=== PATIENT | female | born 1980 | race Caucasian/White ===

== ENCOUNTER → 2021-12-30 01:44 | Outpatient (CLI) | payer BC, SELFPAY ==
--- NOTE | 2021-12-30 08:05 | DI.MAMMO_ITS ---
Exam(s) MAMMO SCREENING EXAM: MAMMO SCREENING CLINICAL HISTORY: SCREENING, Z12.31; FAMILY H/O BREAST CA, Z84.89; DENSE BREAST TISSUE, R92.2 TECHNIQUE: Mammograms were interpreted according to the usual protocol including computer analysis w [employer] CAD system, tomosynthesis and C-view imaging. COMPARISON: None. Baseline examination. FINDINGS: The breasts are composed of heterogeneously dense fibroglandular densities, Breast Density category C . No suspicious masses or suspicious microcalcifications are seen. No skin thickening or abnormal axillary lymph nodes are seen. IMPRESSION: BI-RADS Category 1, Negative mammogram. Yearly screening mammography is recommended. Breast Density Category C, heterogeneously Dense. The mammogram demonstrates the patient's breast tissue is dense. Dense breast tissue is very common a nd is not abnormal but dense breast tissue can make it harder to find cancer on a mammogram. Also, de nse breast tissue may increase breast cancer risk. This information about the result of the mammogram report was provided to the patient to raise their awareness. Use this report when you speak with the patient about their risks for breast cancer, which includes their family history. At that time, you may recommend additional screening tests (Ultrasound or MRI) as they might be useful based on their r isk. A negative radiographic report should not delay biopsy if a dominant or clinically suspicious mass is present. Up to ten percent of cancers are not identified on mammography. A negative report may reinforce clinical impression. Adenosis and dense breasts may obscure an underlying neoplasm. False positive reports average 6 to 10%.
== END ==
PROVIDERS: PCP General Practice; Visit Provider Obstetrics & Gynecology
DX: Z12.31 Encounter for screening mammogram for malignant neoplasm of breast (principal); R92.8 Other abnormal and inconclusive findings on diagnostic imaging of breast
CPT/HCPCS: 77063; 77067

== ENCOUNTER 2022-08-05 18:53 | Emergency (ER) | payer BC, SELFPAY ==
[2022-08-05 18:59] VITALS: BP 138/91; PULSE 82; RESP 19; TEMP 36.8; O2SAT 98
--- NOTE | 2022-08-05 19:15 | DI.RAD_ITS ---
Exam(s) XR TIB/FIB LT XR ANKLE LT COMPLETE CT LOWER EXTREMITY LT WO EXAM: XR ANKLE LT COMPLETE CLINICAL HISTORY: fall TECHNIQUE: 2D digital imaging was performed. Three views. COMPARISON: CR,XR XR TIB/FIB LT from 08/05/[address] LOWER EXTREMITY LT WO from 08/05/2022 FINDINGS: There is displaced, oblique fracture through the lateral malleolus extending to the level of the ankl e mortise. The main fracture fragment is displaced posteriorly more than a full shaft width. There are small adjacent comminuted fragments. Tiny avulsion fragments are noted from the medial malleolus . There is also a small fragment seen posteriorly, likely arising from the posterior aspect of the distal tibial at the at the articular surface. Also question small fracture at anterior aspect of di stal tibia. Talar dome appears intact. There is dislocation laterally and posterior of the talus wi th respect to the distal tibia. No additional fractures are seen more proximally in the tibia and fi bula. The knee appears normally aligned. No additional fractures are seen in the ankle. There is s oft tissue swelling around the ankle but no intramuscular hematoma or other fluid collection visible. IMPRESSION: Comminuted, markedly displaced fracture of the lateral malleolus with associated tibiotalar dislocati on. Additional fracture fragments from the distal tibia. DATA REPOSITORY: RADIATION DOSE DELIVERED:
--- NOTE | 2022-08-05 20:23 | DI.VRAD_ITS ---
PROCEDURE INFORMATION: Exam: XR Left Ankle Exam date and time: 08/05/2022 7:54 PM Age: 42 years old Clinical indication: Injury or trauma; Fall; Blunt trauma; Ankle; Left; Injury date: 08/05/22 TECHNIQUE: Imaging protocol: Radiologic exam of the left ankle. Views: 3 or more views. COMPARISON: No relevant prior studies available. FINDINGS: Bones/joints: There is a comminuted fracture of the lateral malleolus/distal fibula with approximately 1/2 bone with displacement posteriorly of the distal fracture fragment. There is dislocation at the level of the ankle mortise with displacement of the left tibia at 1/2 bone with laterally and widening of the tibiotalar space consistent with severe tendinous and/or ligamentous injuries. The tarsal bones appear intact. Soft tissues: There is extensive soft tissue swelling and deformity. IMPRESSION: 1. There is a comminuted fracture of the lateral malleolus/distal fibula with approximately 1/2 bone width displacement posteriorly of the distal fracture fragment. 2. There is dislocation at the level of the ankle mortise with displacement of the left tibia at 1/2 bone width laterally and widening of the tibiotalar space consistent with severe tendinous and/or ligamentous injuries. Dictated and Authenticated by: Jas Torres MD. Ordering:RENETTA Allen MD
--- NOTE | 2022-08-05 20:25 | DI.VRAD_ITS ---
PROCEDURE INFORMATION: Exam: XR Left Tibia and Fibula Exam date and time: 08/05/2022 7:56 PM Age: 42 years old Clinical indication: Injury or trauma; Fall; Blunt trauma; Lower leg; Left; Injury date: 08/05/22 TECHNIQUE: Imaging protocol: Radiologic exam of the left tibia and fibula. Views: 2 views. COMPARISON: CR XR ANKLE LT COMPLETE 08/05/2022 7:54 PM FINDINGS: Bones/joints: Fracture at the left ankle is previously described involving the fibula tibia and talus. Bone mineralization is age-appropriate. The remaining tibia and fibula appear intact. The knee joint is adequately preserved; no significant degenerative narrowing and no bony erosion seen. There is disruption of the left ankle mortise as previously described. Soft tissues: No radiopaque foreign body present. There is soft tissue swelling present. IMPRESSION: 1. Fracture at the left ankle is previously described involving the fibula tibia and talus. 2. The remaining tibia and fibula appear intact. 3. There is disruption of the left ankle mortise is preserved sellae described. Dictated and Authenticated by: Jas Torres MD. Ordering:RENETTA Allen MD
[2022-08-05] MEDS: MORPHine 4 MG/ML SYR 2 MG IVP (20:27)
[2022-08-05] MEDS: Ondansetron 4 MG/2 ML VIAL IVP (20:28)
--- NOTE | 2022-08-05 20:45 | DI.VRAD_ITS ---
PROCEDURE INFORMATION: Exam: CT Left Lower Extremity Without Contrast; Lower Leg Exam date and time: 08/05/2022 8:15 PM Age: 42 years old Clinical indication: Other: Ankle fracture TECHNIQUE: Imaging protocol: CT of the left lower extremity without contrast was performed. Exam focused on the lower leg. Radiation optimization: All CT scans at this facility use at least one of these dose optimization techniques: automated exposure control; mA and/or kV adjustment per patient size (includes targeted exams where dose is matched to clinical indication); or iterative reconstruction. COMPARISON: CR XR TIB/FIB LT 08/05/2022 7:56 PM FINDINGS: Bones/joints: A small joint effusion present within the knee. Comminuted fracture of the distal fibula the distal fracture fragment is displaced approximately 1 full bone with laterally. Probable avulsion fracture of the medial malleolus. Disruption of the medial malleolus and the ankle mortise with displacement of the tibia approximately 10 mm medially and 2 cm anteriorly. Probable avulsion arising from the dorsal aspect of the tibia and also the anterior aspect of the tibia. Well corticated sesamoid bones present at the level of the medial tarsal region. Soft tissues: Extensive soft tissue swelling present within the foot and ankle. IMPRESSION: 1. Probable avulsion fracture of the medial malleolus. Disruption of the medial malleolus and the ankle mortise with displacement of the tibia approximately 10 mm medially and 2 cm anteriorly. 2. Probable avulsion arising from the dorsal aspect of the tibia and also the anterior aspect of the tibia. 3. Comminuted fracture of the distal fibula the distal fracture fragment is displaced approximately 1 full bone with laterally. Dictated and Authenticated by: Jas Torres MD. Ordering:RENETTA Allen MD
--- NOTE | 2022-08-05 21:35 | NUR.NOTE ---
Nursing Note: Obtained written consent for closed reduction of the left ankle to be performed by Alejandro Guzman NP and Dr. Bragg. Signed at 1539
[2022-08-05] MEDS: HYDROmorphone 2 MG/ML SYR 0.5 MG IVP (21:37)
--- NOTE | 2022-08-05 22:01 | NUR.NOTE ---
Nursing Note: Written consent for conscious sedation signed by Dr. Bragg and patient.
--- NOTE | 2022-08-05 22:08 | NUR.NOTE ---
Nursing Note:[id number] Bragg, Lawrence, FINGER BUFF SEWER, RT, and staff forester at bedside. 2206: Propofol 50mg IV given by Dr. Bragg 2207: Propofol 20mg IV given by Dr. Bragg 2208: Propofol 30mg IV given by Dr. Bragg 2218: Splinting completed, pt awake and talking.
--- NOTE | 2022-08-05 22:15 | DI.RAD_ITS ---
Exam(s) XR ANKLE LT COMPLETE EXAM: XR ANKLE LT COMPLETE CLINICAL HISTORY: post reduction TECHNIQUE: 2D digital imaging was performed. Three views. COMPARISON: CR,XR XR TIB/FIB LT from 08/05/2022 CR,XR XR ANKLE LT COMPLETE from 08/05/2022 FINDINGS: A cast has been placed. There is improved alignment of the distal fibular fracture and previously no yamileth tibiotalar dislocation. DATA REPOSITORY: RADIATION DOSE DELIVERED:
--- NOTE | 2022-08-05 22:21 | RESPIRATORY ---
Respiratory Therapy on emergency stand by for conscious sedation.
[2022-08-05] MEDS: Propofol 200 MG/20 ML VIAL (22:28)
--- NOTE | 2022-08-05 22:46 | ED.GENADUL_ITS ---
Discharge Plan Disposition Patient Disposition: Home Discharge Details Clinical Impression: Ankle fracture, left Primary Care Provider: Blanco Santos ED Provider: Alejandro Guzman Home Meds and New Rx's Prescriptions: No Action dimenhydrinate [Dramamine] 50 mg tablet 50 mg PO Q6H PRN albuterol sulfate [ProAir HFA] 90 mcg/actuation HFA aerosol inhaler 2 puff inhalation Q6H PRN fluticasone propionate 50 mcg/actuation spray,suspension 1 spray intranasal DAILY Rx Instructions: administer into each nostril ondansetron 4 mg Tablet,Disintegrating 4 mg PO DIRECTED acetaminophen 500 mg tablet 1,000 mg PO TID Qty: 90 3RF ibuprofen 600 mg tablet 600 mg PO TID PRNQty: 90 3RF aspirin 81 mg tablet,delayed release (DR/EC) 81 mg PO BID Qty: 60 0RF hydromorphone 2 mg tablet 2 mg PO Q4H PRN (Reason: pain) Qty: 12 0RF Discharge Instructions Additional Instructions: Has been given a limited supply of narcotics and please use as discussed for severe pain only. You may continue to use [id number] pain medication on top of the narcotic. If you have any severe worsening of your symptoms feel free to return the emergency department for emergent reevaluation The orthopedic office will contact you tomorrow for further discussion of definitive care of your ankle fracture. Please do not eat or drink anything after midnight but you may take your medication with small sips of water. Stand Alone Forms: Work Release Referrals: Liu Suh MD [ [facility] STAFF PHYSICIAN] - Discharge Data Discharge Date/Time-TO BE ENTERED AT DEPARTURE: 08/05/22 23:24 Medical Decision Making <Alejandro Guzman NP - Last Filed: 08/08/22 09:01> Patient presenting to the emergency department for chief complaint of left ankle injury. She states her dog ran into her causing her to fall injuring her left ankle. She does state some numbness and tingling along with severe pain and discomfort with no movement of ankle due to deformity. Patient denies any other injury or trauma. Physical exam shows obvious significant deformity of the left ankle with high suspicion of fracture and/or dislocation. Pulses are intact and patient does have sensation and movement of toes but again perceived numbness is present. No range of motion of the injury due to pain and deformity. We will perform radiological imaging and give morphine pending x-ray results. Reviewed x-ray results that show a significant dislocation of the tibia and fracture of the distal fibula. Due to nature of injury CT imaging was obtained as I do suspect patient will need surgical repair. We will consent patient for procedural sedation and closed reduction of the ankle. Patient has no significant past medical history is and has not eaten for appropriate amount of time. Please see procedure note and Dr. Bragg's sedation note. Patient had appropriate reduction of fracture and dislocation splinting was applied. Of note patient had full resolution of all numbness and tingling and intact pulses postreduction. Did contact Dr. Suh who arranged for patient to have surgical intervention tomorrow. Patient given Zofran and limited supply of narcotic to assist with pain overnight pending returning for operative repair. After discussion of diagnosis and plan of care patient has no further needs, questions, or concerns and states clear understanding to return to the emergency department for any worsening symptoms. This documentation was generated using [employer] dictation system, please disregard any oddities of phrase or misspellings. Imaging Data Radiologic Study: Attestation: I personally reviewed and interpreted this imaging study as follows: Imaging: X-Ray Radiologist's impression: Exam(s) PROCEDURE INFORMATION: Exam: XR Left Ankle Exam date and time: 08/05/2022 7:54 PM Age: 42 years old Clinical indication: Injury or trauma; Fall; Blunt trauma; Ankle; Left; Injury date: 08/05/22 TECHNIQUE: Imaging protocol: Radiologic exam of the left ankle. Views: 3 or more views. COMPARISON: No relevant prior studies available. FINDINGS: Bones/joints: There is a comminuted fracture of the lateral malleolus/distal fibula with approximately 1/2 bone with displacement posteriorly of the distal fracture fragment. There is dislocation at the level of the ankle mortise with displacement of the left tibia at 1/2 bone with laterally and widening of the tibiotalar space consistent with severe tendinous and/or ligamentous injuries. The tarsal bones appear intact. Soft tissues: There is extensive soft tissue swelling and deformity. IMPRESSION: 1. There is a comminuted fracture of the lateral malleolus/distal fibula with approximately 1/2 bone width displacement posteriorly of the distal fracture fragment. 2. There is dislocation at the level of the ankle mortise with displacement of the left tibia at 1/2 bone width laterally and widening of the tibiotalar space consistent with severe tendinous and/or ligamentous injuries. Radiologic Study #2: Attestation: I personally reviewed and interpreted this imaging study as follows: Imaging: X-Ray Radiologist's impression: Exam(s) PROCEDURE INFORMATION: Exam: XR Left Tibia and Fibula Exam date and time: 08/05/2022 7:56 PM Age: 42 years old Clinical indication: Injury or trauma; Fall; Blunt trauma; Lower leg; Left; Injury date: 08/05/22 TECHNIQUE: Imaging protocol: Radiologic exam of the left tibia and fibula. Views: 2 views. COMPARISON: CR XR ANKLE LT COMPLETE 08/05/2022 7:54 PM FINDINGS: Bones/joints: Fracture at the left ankle is previously described involving the fibula tibia and talus. Bone mineralization is age-appropriate. The remaining tibia and fibula appear intact. The knee joint is adequately preserved; no significant degenerative narrowing and no bony erosion seen. There is disruption of the left ankle mortise as previously described. Soft tissues: No radiopaque foreign body present. There is soft tissue swelling present. IMPRESSION: 1. Fracture at the left ankle is previously described involving the fibula tibia and talus. 2. The remaining tibia and fibula appear intact. 3. There is disruption of the left ankle mortise is preserved sellae described. Radiologic Study #3: Imaging: CT Scan Radiologist's impression: Exam(s) PROCEDURE INFORMATION: Exam: CT Left Lower Extremity Without Contrast; Lower Leg Exam date and time: 08/05/2022 8:15 PM Age: 42 years old Clinical indication: Other: Ankle fracture TECHNIQUE: Imaging protocol: CT of the left lower extremity without contrast was performed. Exam focused on the lower leg. Radiation optimization: All CT scans at this facility use at least one of these dose optimization techniques: automated exposure control; mA and/or kV adjustment per patient size (includes targeted exams where dose is matched to clinical indication); or iterative reconstruction. COMPARISON: CR XR TIB/FIB LT 08/05/2022 7:56 PM FINDINGS: Bones/joints: A small joint effusion present within the knee. Comminuted fracture of the distal fibula the distal fracture fragment is displaced approximately 1 full bone with laterally. Probable avulsion fracture of the medial malleolus. Disruption of the medial malleolus and the ankle mortise with displacement of the tibia approximately 10 mm medially and 2 cm anteriorly. Probable avulsion arising from the dorsal aspect of the tibia and also the anterior aspect of the tibia. Well corticated sesamoid bones present at the level of the medial tarsal region. Soft tissues: Extensive soft tissue swelling present within the foot and ankle. IMPRESSION: 1. Probable avulsion fracture of the medial malleolus. Disruption of the medial malleolus and the ankle mortise with displacement of the tibia approximately 10 mm medially and 2 cm anteriorly. 2. Probable avulsion arising from the dorsal aspect of the tibia and also the anterior aspect of the tibia. 3. Comminuted fracture of the distal fibula the distal fracture fragment is displaced approximately 1 full bone with laterally. Radiologic Study #4: Attestation: I personally reviewed and interpreted this imaging study as follows: Imaging: X-Ray Radiologist's impression: Exam(s) PROCEDURE INFORMATION: Exam: XR Left Ankle Exam date and time: 08/05/2022 10:31 PM Age: 42 years old Clinical indication: Injury or trauma; Fall; Blunt trauma; Ankle; Left; Injury date: 08/05/22; Injury details: Post reduction TECHNIQUE: Imaging protocol: Radiologic exam of the left ankle. Views: 3 or more views. COMPARISON: CT LOWER EXTREMITY LT WO 08/05/2022 8:15 PM FINDINGS: Tubes, catheters and devices: There is an external fiberglass splint in place. Bones/joints: There is been closed reduction of the fracture of the left fracture dislocation of the left ankle. The osseous structures lie in excellent alignment position considering the severity of the patient's original fracture. Soft tissues: There is soft tissue swelling. IMPRESSION: There is been closed reduction of the fracture of the left fracture dislocation of the left ankle. The osseous structures lie in excellent alignment position considering the severity of the patient's original fracture. HPI <Alejandro Guzman NP - Last Filed: 08/08/22 09:01> General Mode of arrival: wheelchair . Date/Time Provider Initiated Documentation: 08/05/22 19:26 . Limitations to Documentation: no limitations . Information obtained by: patient and RN notes reviewed . History of Present Illness 42 year old F presents to the emergency department with the chief complaint of Fall with left ankle injury, described as severe, with intensity rated at 9. Quality is described as sharp, and is localized to the left and lower extremity. Patient reports no radiation. Patient started experiencing this hour(s) (1) and it has been constant. Immobilization improves symptom(s), Movement worsens symptoms . Patient notes no other symptoms.. Patient did receive the following treatments prior to arrival, none Related Data Home Medications Medication Instructions Recorded Confirmed albuterol sulfate 90 mcg/actuation 2 puff inhalation Q6H PRN 06/30/22 08/06/22 aerosol inhaler (ProAir HFA) dimenhydrinate 50 mg tablet 50 mg PO Q6H PRN 06/30/22 08/06/22 (Dramamine) fluticasone propionate 50 1 spray intranasal DAILY 06/30/22 08/06/22 mcg/actuation nasal spray,suspension acetaminophen 500 mg tablet 1,000 mg PO TID #90 tabs 08/06/22 aspirin 81 mg tablet,delayed 81 mg PO BID #60 tabs 08/06/22 release hydromorphone 2 mg tablet 2 mg PO Q4H PRN pain #12 tabs 08/06/22 ibuprofen 600 mg tablet 600 mg PO TID PRN #90 tabs 08/06/22 ondansetron 4 mg disintegrating 4 mg PO DIRECTED 08/06/22 08/06/22 tablet Previous Rx's Medication Instructions Recorded acetaminophen 500 mg tablet 1,000 mg PO TID #90 tabs 08/06/22 aspirin 81 mg tablet,delayed 81 mg PO BID #60 tabs 08/06/22 release hydromorphone 2 mg tablet 2 mg PO Q4H PRN pain #12 tabs 08/06/22 ibuprofen 600 mg tablet 600 mg PO TID PRN #90 tabs 08/06/22 Allergies Allergy/AdvReac Type Severity Reaction Status Date / Time doxycycline Allergy Unknown Hives Unverified 08/06/22 09:16 lansoprazole Allergy Unknown Other (See Unverified 08/06/22 09:16 Comment) omeprazole Allergy Unknown Unknown Unverified 08/06/22 09:16 General Stated Complaint: Orthopedic CYRUS: 4 Review of Systems <Alejandor Guzman NP - Last Filed: 08/08/22 09:01> Musculoskeletal Musculoskeletal: Reports as per HPI, Reports deformity, Reports joint swelling, Reports limited range of motion, Reports numbness and Reports tingling Integumentary/Breasts Skin/Breast: Reports unusual bruising and Denies wounds Neurologic Neurologic: Reports numbness and Reports tingling [facility] <Alejandro Guzman NP - Last Filed: 08/08/22 09:01> All Active Problems Closed fracture dislocation of left ankle (Acute) S/P ORIF: 08/06/2022 GERD (gastroesophageal reflux disease) (Chronic) Patient desires (Acute) Ankle fracture, left (Acute) Medical History Gallbladder polyp Migraines Osteoarthritis of both hands Surgical History History of lumpectomy of left breast (~2000) History of lumpectomy of right breast (~2009) Hx of esophagogastroduodenoscopy (~2020) Family History Mother No problems noted. Father Heart disease Hypertension Sister No problems noted. Sister No problems noted. Brother No problems noted. Maternal Grandfather , 70 Alcohol use disorder Paternal Grandfather , 92 Stroke Maternal Grandmother , 85 Breast cancer Heart disease Paternal Grandmother , 46 Alcohol use disorder Depression Social History Smoking/Tobacco Use Status: Never Smoking risk assessment performed?: Yes Alcohol Intake: current Alcohol Intake frequency: a few times a month Drug use: Never Substance use type: does not use Counseling given: No Caregiver/Support person: No Household members: spouse Housing: house Communication Needs: Corrective Lenses Do you need help understanding health information?: Always Pets and animals: Yes Pets and animals: dog(s) Sexually active: Yes Do you think of yourself as: straight/heterosexual Current gender identity: female What is your relationship status?: How often do you talk on the phone with friends or family?: decline to answer How often do you get together with friends or relatives?: once per week How often do you attend episcopalian or uatsdin services?: decline to answer Do you belong to any clubs or organized social groups?: decline to answer Panel score (0-1 are the most socially isolated patients): 1 What type of physical activity do you participate in: walking and bicycling Duration: 30-45 minutes/day Frequency: daily Brie/Protestant: None Special brie needs: No Seatbelt use: always Helmet use: Yes Helmet use: always 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 Do you feel safe at home: Yes Do you feel safe in your relationship?: Yes Exam <Alejandro Guzman NP - Last Filed: 08/08/22 09:01> Const General: cooperative, no acute distress and not ill appearing Orientation: alert, awake and oriented x3 HENMT Mouth: moist mucous membranes Resp Effort & Inspection: normal respiratory effort, able to speak in complete sentences and no respiratory distress Cardio Rate: regular rate Rhythm: regular rhythm Pulses: normal peripheral pulses Skin General skin exam: no rashes or lesions noted Neuro General: patient alert, patient awake, patient oriented x3, moves all extremities and no focal motor deficits Sensory Exam: no sensory deficits noted Extrem General: normal exam except as noted Left lower extremity: ankle Details: abnormal to inspection Details: obviously dislocated, tenderness (Diffuse), swelling, abnormal ROM Details: with range as follows (None due to deformity) and ecchymosis; no abrasions and no lacerations and foot Details: toes with normal ROM, vascular exam Details: dorsalis pedis pulse present and normal capillary refill and motor-sensory exam (Does report some perceived numbness and tingling) Details: two point discrimination normal a nd light-touch normal; no ecchymosis Course <Alejandro Guzman NP - Last Filed: 08/08/22 09:01> Vital Signs Vital signs: Vital Signs Temperature 36.8 C 08/05/22 18:59 Pulse 82 08/05/22 18:59 Respiratory Rate 19 08/05/22 18:59 Blood Pressure 138/91 H 08/05/22 18:59 Pulse Oximetry 98 08/05/22 18:59 Temperature 36.8 C 08/05/22 18:59 Temperature Source Oral 08/05/22 18:59 Pulse 82 08/05/22 18:59 Respiratory Rate 19 08/05/22 18:59 Respiratory Effort Normal 08/05/22 19:05 Blood Pressure 138/91 H 08/05/22 18:59 Blood Pressure Position Sitting 08/05/22 18:59 Pulse Oximetry 98 08/05/22 18:59 Oxygen Delivery Method Room Air 08/05/22 18:59 Oxygen Flow Rate 0 08/05/22 18:59 Pain Level 9 08/05/22 18:59 Lab/Test Results Lab/Test Results: POC- Test(urine) Negative Procedures <Alejandro Guzman NP - Last Filed: 08/08/22 09:01> Orthopedic Fracture Reduction Fracture #1: Time Out Performed: Yes Side: left Fracture Reduction Location: fibula Analgesia: procedural sedation Technique: direct manipulation Post Reduction X-rays Demonstrate: acceptable reduction Post-reduction neuro exam: intact Post-reduction vascular exam: intact Splint Applied: Yes Patient Tolerated Procedure: well and no complications <Contreras Bragg DO - Last Filed: 08/06/22 04:17> Procedural Sedation Indication: fracture/dislocation reduction ASA Class: I Time of Last PO Intake: 13:00 Preparation: monitor car operator applied, pulse oximeter, capnometry used, supplemental O2 applied, suction/airway equipment at bedside and IV secured IV Propofol dose (mg): 100 Patient Tolerated Procedure: well and no complications Complications: none
--- NOTE | 2022-08-05 23:23 | DI.VRAD_ITS ---
PROCEDURE INFORMATION: Exam: XR Left Ankle Exam date and time: 08/05/2022 10:31 PM Age: 42 years old Clinical indication: Injury or trauma; Fall; Blunt trauma; Ankle; Left; Injury date: 08/05/22; Injury details: Post reduction TECHNIQUE: Imaging protocol: Radiologic exam of the left ankle. Views: 3 or more views. COMPARISON: CT LOWER EXTREMITY LT WO 08/05/2022 8:15 PM FINDINGS: Tubes, catheters and devices: There is an external fiberglass splint in place. Bones/joints: There is been closed reduction of the fracture of the left fracture dislocation of the left ankle. The osseous structures lie in excellent alignment position considering the severity of the patient's original fracture. Soft tissues: There is soft tissue swelling. IMPRESSION: There is been closed reduction of the fracture of the left fracture dislocation of the left ankle. The osseous structures lie in excellent alignment position considering the severity of the patient's original fracture. Dictated and Authenticated by: Jas Torres MD. Ordering:RENETTA Allen MD
== END 2022-08-05 23:24 | disposition home or self-care (01) ==
PROVIDERS: Emergency Provider Nurse Practitioner Family; PCP Nurse Practitioner Family
DX: S82.892A Other fracture of left lower leg, initial encounter for closed fracture (principal); W19.XXXA Unspecified fall, initial encounter
CPT/HCPCS: 27788; 81025; 96374; 96375; 99284; 73590; 73610; 73700; J1170; J2270; J2405; J2704

== ENCOUNTER 2022-08-06 09:04 | Day surgery (SDC) | payer BC, SELFPAY ==
[2022-08-06] VITALS (11 sets, daily range): BP systolic 111–134; BP diastolic 62–86; PULSE 66–81; RESP 11–23; TEMP 36.1–37; O2SAT 95–99; BMI 24.1
--- NOTE | 2022-08-06 09:34 | HPE_ITS ---
Assessment and Plan Assessment and plan (1) Closed fracture dislocation of left ankle: Status: Acute Assessment and plan: Pascual is a 42-year-old active female who suffered a left ankle fracture dislocation. Given the nature of the fracture and its instability I recommend operative fixation. I discussed treatment options with her and she agrees to move forward with operative fixation given the instability of the fracture and associated tissues. My plan will be for fixation of the lateral side of the ankle. I would then assess stability. The postreduction x-rays performed in the emergency department show a well reduced ankle. There is obvious deltoid ligament disruption however, no apparent interposition based on the reduction films. I would have a very low threshold for opening the medial side of the ankle to evaluate the deltoid ligament repair if necessary. I discussed all this with her. I reviewed the risk to include bleeding, infection, pain, stiffness, hardware failure, hardware prominence, need for repeat procedures, malunion, nonunion, damage to nerves and vessels, blood clot. Despite these risk, she elects to proceed. History of Present Illness Consults Consult date: 08/05/22 Requesting physician: Alejandro Guzman Narrative: Pascual is a 42-year-old active female who had a fall yesterday and suffered a left ankle fracture dislocation. She was seen in the emergency department and diagnosed with a posterior lateral dislocation of left ankle. Closed reduction under sedation was performed with success. However, given the nature of the fracture I offered operative fixation. She reports having some pain in the left ankle although better than from before the reduction. She denies active numbness or tingling. She denies any preinjury pain about the left ankle. She reports no significant medical issues. She is otherwise in good health. She denies any active chest pain or shortness of breath. Review of Systems All systems reviewed & are unremarkable except as noted in HPI and below PFSH All Active Problems Closed fracture dislocation of left ankle (Acute) S/P ORIF: 08/06/2022 GERD (gastroesophageal reflux disease) (Chronic) Patient desires (Acute) Ankle fracture, left (Acute) Medical History Gallbladder polyp Migraines Osteoarthritis of both hands Surgical History History of lumpectomy of left breast (~2000) History of lumpectomy of right breast (~2009) Hx of esophagogastroduodenoscopy (~2020) Family History Mother No problems noted. Father Heart disease Hypertension Sister No problems noted. Sister No problems noted. Brother No problems noted. Maternal Grandfather , 70 Alcohol use disorder Paternal Grandfather , 92 Stroke Maternal Grandmother , 85 Breast cancer Heart disease Paternal Grandmother , 46 Alcohol use disorder Depression Social History Smoking/Tobacco Use Status: Never Smoking risk assessment performed?: Yes Alcohol Intake: current Alcohol Intake frequency: a few times a month Drug use: Never Substance use type: does not use Counseling given: No Caregiver/Support person: No Household members: spouse Housing: house Communication Needs: Corrective Lenses Do you need help understanding health information?: Always Pets and animals: Yes Pets and animals: dog(s) Sexually active: Yes Do you think of yourself as: straight/heterosexual Current gender identity: female What is your relationship status?: How often do you talk on the phone with friends or family?: decline to answer How often do you get together with friends or relatives?: once per week How often do you attend sikhism or zoroastrian services?: decline to answer Do you belong to any clubs or organized social groups?: decline to answer Panel score (0-1 are the most socially isolated patients): 1 What type of physical activity do you participate in: walking and bicycling Duration: 30-45 minutes/day Frequency: daily Brie/Pentecostalism: None Special brie needs: No Seatbelt use: always Helmet use: Yes Helmet use: always 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 Do you feel safe at home: Yes Do you feel safe in your relationship?: Yes Meds Allergies and Home Medications Allergies Allergy/AdvReac Type Severity Reaction Status Date / Time doxycycline Allergy Unknown Hives Unverified 08/06/22 09:16 lansoprazole Allergy Unknown Other (See Unverified 08/06/22 09:16 Comment) omeprazole Allergy Unknown Unknown Unverified 08/06/22 09:16 Home Medications Medication Instructions Recorded Confirmed Type albuterol sulfate 90 mcg/actuation 2 puff inhalation Q6H PRN 06/30/22 08/06/22 History aerosol inhaler (ProAir HFA) dimenhydrinate 50 mg tablet 50 mg PO Q6H PRN 06/30/22 08/06/22 History (Dramamine) fluticasone propionate 50 1 spray intranasal DAILY 06/30/22 08/06/22 History mcg/actuation nasal spray,suspension acetaminophen 500 mg tablet 1,000 mg PO TID #90 tabs 08/06/22 Rx aspirin 81 mg tablet,delayed 81 mg PO BID #60 tabs 08/06/22 Rx release ibuprofen 600 mg tablet 600 mg PO TID PRN #90 tabs 08/06/22 Rx ondansetron 4 mg disintegrating 4 mg PO DIRECTED 08/06/22 08/06/22 History tablet oxycodone 5 mg tablet 5 mg PO Q4H PRN pain #20 tabs 08/06/22 Rx Exam Const General: cooperative, healthy appearing, comfortable and no acute distress Resp Auscultation: clear to auscultation bilaterally Cardio Rate: regular rate Rhythm: regular rhythm Extrem Other: Evaluation of the left leg shows a splint in good position. There is notable swelling seen about the foot. Sensation intact light touch over the deep and superficial peroneal nerve and tibial nerve. Capillary refill less than 2 seconds. No pain to palpation of the knee. She is able to demonstrate active flexion extension of the toes. Results Imaging Imaging Studies: X-ray of the left tib-fib and ankle shows a posterior lateral dislocation of the left ankle with fracture mostly involving the distal aspect the fibula. CT scan of the left ankle was also obtained which shows the aforementioned fracture dislocation. There is a very small flake off the posterior aspect lateral tibia but no large tibial fracture. No apparent medial malleolar fracture although there is 2 small flecks of bone seen just lateral to the malleolus and just medial to the medial aspect of the talus.. Last Vital Signs Temp 37 C 08/06/22 09:05 Pulse 80 08/06/22 09:05 Resp 16 08/06/22 09:05 BP 123/86 08/06/22 09:05 Pulse Ox 96 05/31/23 09:05
[2022-08-06] MEDS: Lactated Ringers 1,000 ML 80 ML IV (09:36)
[2022-08-06] MEDS: Acetaminophen 500 MG TAB 1000 MG PO (09:43)
[2022-08-06] MEDS: Celecoxib 200 MG CAP 400 MG PO (09:43)
--- NOTE | 2022-08-06 09:57 | W.ANESPRE ---
General Info Date of Service Date Performed: 08/06/22 Height: 5 ft 5 in Weight: 65.771 kg Body Mass Index (BMI): 24.1 Surgical Procedure: Operation Date: 08/06/22 11:55 Proposed Procedure Side Surgeon p Ankle ORIF Dislocation, Potential Deltoid Ligament Repair Left Liu Suh MD Actual Procedure Side Surgeon p Ankle ORIF Dislocation, Potential Deltoid Ligament Repair Left Liu Suh MD Meds Allergies and Home Medications Allergies Allergy/AdvReac Type Severity Reaction Status Date / Time doxycycline Allergy Unknown Hives Unverified 08/06/22 09:16 lansoprazole Allergy Unknown Other (See Unverified 08/06/22 09:16 Comment) omeprazole Allergy Unknown Unknown Unverified 08/06/22 09:16 Home Medication Medication Instructions Recorded albuterol sulfate 90 mcg/actuation 2 puff inhalation Q6H PRN 06/30/22 aerosol inhaler (ProAir HFA) dimenhydrinate 50 mg tablet 50 mg PO Q6H PRN 06/30/22 (Dramamine) fluticasone propionate 50 1 spray intranasal DAILY 06/30/22 mcg/actuation nasal spray,suspension acetaminophen 500 mg tablet 1,000 mg PO TID #90 tabs 08/06/22 aspirin 81 mg tablet,delayed 81 mg PO BID #60 tabs 08/06/22 release ibuprofen 600 mg tablet 600 mg PO TID PRN #90 tabs 08/06/22 ondansetron 4 mg disintegrating 4 mg PO DIRECTED 08/06/22 tablet oxycodone 5 mg tablet 5 mg PO Q4H PRN pain #20 tabs 08/06/22 Current Visit Medications: Current Medications Generic Name Dose Route Start Last Admin Trade Name Freq PRN Reason Stop Dose Admin Acetaminophen 650 mg 08/06/22 09:11 Acetaminophen 325 Mg Tab PO 09/05/22 09:10 Q4H PRN PRN Acetaminophen 1,000 mg 08/06/22 09:31 08/06/22 09:43 Acetaminophen 500 Mg Tab PO 09/05/22 09:30 1,000 mg PREOP TIMI Administration Celecoxib 400 mg 08/06/22 09:31 08/06/22 09:43 Celecoxib 200 Mg Cap PO 09/05/22 09:30 400 mg PREOP TIMI Administration Ringer's Solution 1,000 mls @ 80 mls/hr 08/06/22 06:00 08/06/22 09:36 IV 09/05/22 23:59 80 mls/hr INFUSION TIMI Administration Cefazolin Sodium/Dextrose 2 gm in 50 mls @ 100 mls/hr 08/06/22 06:00 Ancef Duplex IVPB 09/05/22 23:59 PREOP TIMI Tranexamic Acid 1,000 mg/ 60 mls @ 360 mls/hr 08/06/22 09:31 Sodium Chloride IV 09/05/22 09:30 PREOP TIMI IV Miscellaneous Supplies 1 each 08/06/22 06:00 Iv Access IV 09/05/22 23:59 DIRECTED TIMI Oxycodone HCl 5 mg 08/06/22 09:11 Oxycodone 5 Mg Tab PO 09/05/22 09:10 Q3H PRN PRN Pain Sodium Chloride 0 ml 08/06/22 06:00 Normal Saline Flush 10 Ml Syr IV 09/05/22 23:59 PRN PRN Sodium Chloride 0 ml 08/06/22 06:00 Normal Saline 10 Ml Vial IJ 09/05/22 23:59 DIRECTED PRN Sterile Water 0 ml 08/06/22 06:00 Water,Injection,Sterile 10 Ml Vial IJ 09/05/22 23:59 DIRECTED PRN PFSH Active Problems Active Problems: Problem Status Onset Code Closed fracture dislocation of left ankle S82.892A GERD (gastroesophageal reflux disease) K21.9 Patient desires Z31.9 Ankle fracture, left S82.892A Medical History Medical History Gallbladder polyp Migraines Osteoarthritis of both hands Surgical History Surgical History History of lumpectomy of left breast (~2000) History of lumpectomy of right breast (~2009) Hx of esophagogastroduodenoscopy (~2020) Tobacco Smoking/Tobacco Use Status: Never Passive smoking exposure: Yes Alcohol Alcohol Intake: current Alcohol intake frequency: a few times a month Substance Use Substance use: Never Substance use type: does not use Vital Signs and Lab Results Vital Signs Most Recent Vital Signs in EMR: Most Recent Vital Signs Temp Pulse Resp BP Pulse Ox 37 C 80 16 123/86 96 05/31/23 09:05 08/06/22 09:05 08/06/22 09:05 08/06/22 09:05 08/06/22 09:05 Lab Results Blood Type / Crossmatch: No Data to Display Complete Blood Count: No Data to Display Complete Metabolic Panel: No Data to Display Liver Function Panel: No Data to Display Coagulation Panel: No Data to Display Cardiac Panel: No Data to Display Arterial Blood Gas: No Data to Display Venous Blood Gas: No Data to Display Pancreas Panel: No Data to Display Thyroid Panel: No Data to Display Infectious Disease: No Data to Display Blood Cultures: No Data to Display Toxicology Panel: No Data to Display Panel: No Data to Display Anesthesia Assessment and Plan Anesthesia History Personal History: No History of Anesthesia Complications Family History: No Family History of Anesthesia Complications Exercise Tolerance Exercise Tolerance: Metabolic Equivalents>4 Pertinent Negatives Pertinent Negatives: No Major Cardiovascular Symptoms or Complaints, No Major Pulmonary Symptoms or Complaints and No History of CVA/TIA Cardiac & Pulmonary Exam Cardiac Exam: Normal S1/S2 Heart Sounds Pulmonary Exam: Clear Bilateral Breath Sounds Implantable Cardiac Device Does patient have a Pacemaker or an ICD?: No Airway Exam Known Difficult Airway: No Mallampati Class: 2 Mouth Opening: Normal (> 3cm) Thyromental Distance: Greater than 3 cm Neck Range of Motion: Full ROM Neck Circumference: Normal Teeth Condition: Normal Dentition (permanent retainer bottom) ASA Classification ASA Score: ASA 2 Emergency Case?: No NPO Status NPO Status: NPO Clears >2 hours, Solids >8 hours Status Status: Negative HCG Anesthesia Plan Resuscitation Status: Full Code Anesthesia Technique: General Anesthesia Airway Planned: Endotracheal Tube Pain Management: Surgeon and patient request nerve block Monitors Used: Standard Monitors
[2022-08-06] MEDS: ceFAZolin 2 GM/50 ML BAG IVPB (11:52)
--- NOTE | 2022-08-06 12:16 | W.ANESNERVE ---
Nerve Block Single Injection Procedure Date and Time Date Performed: 08/06/22 Procedure Start: 10:18 Location Where Procedure Performed Procedure Location: Day Surgery Unit Reason Performed: Postoperative Analgesia Requesting Provider: Liu Suh Timeout Performed Timeout Performed: Yes Monitoring Used ECG, Blood Pressure, SpO2 and See EMR for corresponding vital signs Sterility Sterility: Hand Hygiene, Surgical Cap, Surgical Mask, Sterile Gloves, Sterile Drape/Sheet and Chlorhexidine Sedation Given During Procedure Sedation Given (Indicate Dose Given): Versed IV Dose:: 2 mg Patient Mental Status Patient Mental Status: Sedate with meaningful communication Nerve Block 1st Nerve Block: Laterality: Left Block Type: Adductor Canal Ultrasound Image Saved?: Yes Needle / Catheter Used: 100mm SonoPlex II Local Anesthetic Bolus (Indicate Dose Given): Lidocaine used for local infiltration of skin, Injected in 3-5ml increments after negative blood aspiration and Bupivacaine 0.25% Dose:: 10ml Additives (Indicate Dose Given): None Ultrasound: Sterile probe cover and gel used Nerve Stimulator: Not Used Paresthesia: None Procedure Tolerated: No Complications and Patient tolerated well Procedure Outcome: Successful Performed By: Bridget Aparicio 2nd Nerve Block: Laterality: Left Block Type: Popliteal Sciatic Ultrasound Image Saved?: Yes Needle / Catheter Used: 100mm SonoPlex II Local Anesthetic Bolus (Indicate Dose Given): Lidocaine used for local infiltration of skin, Injected in 3-5ml increments after negative blood aspiration and Bupivacaine 0.25% Dose:: 20 ml Additives (Indicate Dose Given): None Ultrasound: Sterile probe cover and gel used Nerve Stimulator: Not Used Paresthesia: Left (needle redirected and parasthesia gone prior to injection) Paresthesia Duration: Transient Procedure Tolerated: No Complications and Patient tolerated well Procedure Outcome: Successful Performed By: Bridget Aparicio
--- NOTE | 2022-08-06 12:28 | DI.RAD_ITS ---
Exam(s) XR ANKLE LT 2V EXAM: XR ANKLE LT 2V CLINICAL HISTORY: LEFT ANKLE FRACTURE. TECHNIQUE: 2D and realtime digital imaging was performed. COMPARISON: CR,XR XR ANKLE LT COMPLETE from 08/05/2022 FINDINGS: Fluoroscopy was provided in the OR for Dr. Suh. Hard copy images show placement of a fixation p late and screw along the distal fibula for fracture fixation. The alignment appears anatomic. A str ess view was performed which is not show evidence of ankle mortise widening. Please see procedure note for details. Fluoro time: 48seconds RADIATION DOSE DELIVERED: kulwant Villatoro=1.27 mGy
--- NOTE | 2022-08-06 12:59 | W.PM.OP ---
Date of service: 08/06/22 Time of Service: 12:59 Operative Note Operative Note DATE OF PROCEDURE: 08/06/22 PRE-OP DIAGNOSIS: Left Ankle Fracture Dislocation POST-OP DIAGNOSIS: same PROCEDURE: Open Reduction and Internal Fixation of Left Ankle - Distal Fibula SURGEON: Liu Suh FUR MIXER OPERATOR: Yobany Turcios ANESTHESIA TYPE: General LMA/ETT and Primary Nerve Block Refer to Anesthesia Record ESTIMATED BLOOD LOSS: 50 PATHOLOGY: none sent TOURNIQUET TIME: 0 COMPLICATIONS: None Patient was transported to: PACU Patient's condition: stable Indications: Pascual is a 42 year old female who presented to the Emergency Department after a fall. X-rays confirmed the diagnosis of a left ankle fracture-dislocation. I reviewed the possible treatment options and given the fracture, I recommended operative fixation. I discussed the technical details of the surgery. I reviewed the risks such as bleeding, infection, pain, stiffness, malunion, nonunion, hardware prominence, hardware faiilure, malrotation, damage to nerves and vessels, blood clot. Despite these risks, she agreed to proceed. Findings: There was a fracture of the distal fibul, grossly unstable, which was reduced with traction and internal rotation and clamps. This was secured with a lag screw and a neutralization plate was then placed. Stress views in multiple positions were performed and showed no talus tilt nor displacement thus not requiring any syndesmotic or medial fixation. Procedure Description: Pascual was greeted in the preoperative area. Consent was previously reviewed and signed. In the day surgery unit, the anesthesia team provided popliteal saphenous block for intraoperative and postoperative pain control. Once in the operating room, a general anesthesia was administered. The patient was transferred to the operating table in the supine position. She was positioned in the supine position with the operative side placed onto a bone foam ramp. All bony prominences were well padded. Arms were placed out to the side, padded, and secured. A single dose of TXA, 1 gram, was then administered IV. Prophylactic antibiotics, Cefazolin 2 grams, was given for prophylactic antibiotics. A timeout was performed for safe surgery. The left leg was prepped with Chloraprep. The leg was draped with a stockinette and extremity drape. Fluoroscopy was utilized to identify the location of the fracture. A longitudinal incision was marked overlying the distal fibula. This was taken down sharply through the skin. There is abundant amount of blood and clot adjacent to the fibula in this region. Blunt dissection was carried down to the level of the fibula. Once on the fibular the fibular periosteum was incised and a etienne elevator was used to expose the fibula and the fracture. The distal aspect of the fibula was grossly unstable. There was notable shortening and displacement of the fibula. Using traction, internal rotation, and clamps, I was able to reduce the fibular fracture anatomically. Although it is being held a lag screw was placed with technique. The anterior cortex was drilled with a 3.5 drill followed by 2.5 drill to complete the course of the screw. 3.5 millimeter screw was placed with excellent compression of the fracture site. A 7 hole one third tubular plate was then placed onto the fibula. It was secured in position by single nonlocking 3.5 millimeter screw proximal to the fracture site. Fluoroscopy utilized to confirm appropriate positioning of the plate as well as maintained reduction of the fracture. 3 locking screws were placed into the distal aspect of the plate utilizing the locking guides. 2 additional nonlocking screws were placed proximal. Stress view of the ankle was then performed. This was done with a mortise as a baseline and then external Tatian and dorsiflexion was applied to the foot. There is no tilting of the talus. There is no displacement of the talus, gapping of the syndesmosis or the medial clear space. A stress test was also performed with the ankle in a plantarflexed position from the lateral view which showed only minimal amount of anterior laxity. Back in the mortise view position, a cotton test was also performed which was negative. Despite the severe dislocation and displacement initially, this stability did not indicate any other procedure to the syndesmosis or the medial deltoid ligament was required and therefore surgery was complete. The lateral wound was thoroughly irrigated. Deep tissues were injected with 0.25% bupivacaine with epinephrine. The periosteum was closed with a #0 Vicryl. The deep tissues were closed with 2-0 and 3-0 Vicryl. The skin was closed with a 4-0 nylon. The wound was dressed with Xeroform, 4 x 4, ABD, Webril. A short leg splint was applied. At the end of the case, all counts were correct. Pascual tolerated the procedure well without known complication and was taken to the PACU for recovery. Nonweightbearing with a splint.
--- NOTE | 2022-08-06 13:26 | W.PM.DSUDISC ---
Date of service: 08/06/22 Time of Service: 13:26 Discharge Plan Disposition Patient Disposition: Home Condition: Good Discharge Details Reason For Visit: ORIF L ankle Attending Provider: Liu Suh Primary Care Provider: Blanco Santos Home Meds and New Rx's Prescriptions: New acetaminophen 500 mg tablet 1,000 mg PO TID Qty: 90 3RF ibuprofen 600 mg tablet 600 mg PO TID PRNQty: 90 3RF oxycodone 5 mg tablet 5 mg PO Q4H MDD 6 tabs PRN (Reason: pain) Qty: 20 0RF aspirin 81 mg tablet,delayed release (DR/EC) 81 mg PO BID Qty: 60 0RF Continued dimenhydrinate [Dramamine] 50 mg tablet 50 mg PO Q6H PRN albuterol sulfate [ProAir HFA] 90 mcg/actuation HFA aerosol inhaler 2 puff inhalation Q6H PRN fluticasone propionate 50 mcg/actuation spray,suspension 1 spray intranasal DAILY Rx Instructions: administer into each nostril ondansetron 4 mg Tablet,Disintegrating 4 mg PO DIRECTED Discontinued oxycodone 5 mg Tablet 5 mg PO DIRECTED Discharge Instructions Additional Instructions: Ankle ORIF Discharge Instructions Activity: You are NON WEIGHT BEARING. You should keep the leg elevated as much as possible. You may wiggle your toes and move your hip and knee. Dressings: You should keep your splint clean and dry. Do NOT get wet or dirty. If you have issues with your splint, please call the office at [phone] or the hospital after hours. Medications: - You should take Tylenol and Ibuprofen around the clock for baseline pain. - You have been given a stronger narcotic in th ER for breakthrough pain. If you need more or something else, please call Dr. Suh's office to discuss. - You should take a Baby Aspirin (81mg) twice a day for blood clot prevention. Follow-up: 2 weeks Equipment/Supplies: Non-Weight Bearing Crutches Activity:: Elevate Remove Dressings/Wound Care:: Do Not Remove Shower/Bathe:: Cover Diet:: As Tolerated Discharge Orders Discharge Orders: Discharge Order (Routine); Ordered 08/06/22 Ordered By: Yobany Turcios DS: Diagnosis Discharge Diagnosis (1) Closed fracture dislocation of left ankle: Status: Acute
[2022-08-06] MEDS: HYDROmorphone 2 MG/ML SYR IVP (13:51)
[2022-08-06] MEDS: Normal Saline 10 ML VIAL IJ (13:52)
[2022-08-06] MEDS: Droperidol 5 MG/2 ML VIAL 0.625 MG IVP (14:36)
[2022-08-06] MEDS: oxyCODONE 5 MG TAB PO (14:54)
--- NOTE | 2022-08-06 14:59 | W.ANESPOSTOP ---
Postoperative Evaluation Date, Time and Location Date Performed: 08/06/22 Time Performed: 15:00 Patient Location: Day Surgery Unit Vital Signs Most Recent Imported Vital Signs: Most Recent Vital Signs Temp Pulse Resp BP Pulse Ox 36.1 C L 75 14 119/73 98 08/06/22 14:32 08/06/22 14:32 08/06/22 14:32 08/06/22 14:32 08/06/22 14:32 Pain Score Most Recent Pain Score: Most Recent Pain Score Pain Level 6 08/06/22 14:32 Assessment Mental Status: Awake (Alert & Oriented to Patient Baseline) Airway and Respiratory Function: Patent airway with normal (patient baseline) respiratory exam Cardiovascular Function: Hemodynamically Stable Hydration Status: Adequately Hydrated Nausea & Vomiting: No Nausea or Vomiting Pain: Pain is Moderate or Severe Postoperative Pain Management: Pain being addressed with medication Peripheral Nerve Block: Regional nerve block not resolved at time of post operative discharge
[2022-08-06] MEDS: Acetaminophen 325 MG TAB 650 MG PO (15:41)
== END 2022-08-06 16:20 | disposition home or self-care (01) ==
PROVIDERS: PCP Nurse Practitioner Family; Visit Provider Student in an Organized Health Care Education/Training Program
PROC: (CPT 27792; principal; 2022-08-06 11:45)
DX: S82.62XA Displaced fracture of lateral malleolus of left fibula, initial encounter for closed fracture (principal); W19.XXXA Unspecified fall, initial encounter; K21.9 Gastro-esophageal reflux disease without esophagitis; G43.909 Migraine, unspecified, not intractable, without status migrainosus
CPT/HCPCS: 27792; 76942; 81025; 73600; J0690; J1100; J1170; J1790; J2001; J2250; J2405; J2704

== ENCOUNTER 2022-08-13 15:00 | Outpatient (CLI) | payer BC, SELFPAY ==
[2022-08-14 18:21] LABS: Estradiol 65 pg/mL (See Note)
[2022-08-14 18:25] LABS: FSH 7.3 mIU/mL (See Note)
[2022-08-15 15:57] LABS: Antimullerian Hormone 1.9 ng/mL (0.03-5.5)
== END 2022-08-13 15:01 | disposition home or self-care (01) ==
LOC: LBO 15:02
PROVIDERS: PCP Nurse Practitioner Family; Visit Provider Obstetrics & Gynecology Gynecology
DX: Z31.89 Encounter for other procreative management
CPT/HCPCS: 36415; 82670; 83001; 83520

== ENCOUNTER 2022-08-15 11:41 | Outpatient (CLI) | payer BC, SELFPAY ==
--- NOTE | 2022-08-15 11:30 | DI.RAD_ITS ---
Exam(s) XR ANKLE LT COMPLETE EXAM: XR ANKLE LT COMPLETE CLINICAL HISTORY: L ankle ORIF. TECHNIQUE: 2D digital imaging was performed. Three images were obtained. AP, lateral and oblique vi ews were obtained. COMPARISON: CR,XR XR ANKLE LT COMPLETE from 08/05/2022 XA XR ANKLE LT 2V from 08/06/2022 FINDINGS: BONES: There are stable post operative changes present. No new fracture or dislocation. JOINTS: The joint spaces are well maintained. SOFT TISSUE: There is mild soft tissue swelling around the ankle. IMPRESSION: Stable postoperative changes. DATA REPOSITORY: RADIATION DOSE DELIVERED:
== END 2022-08-15 11:42 | disposition home or self-care (01) ==
LOC: DIORS 11:41
PROVIDERS: PCP Nurse Practitioner Family; Referring Provider Nurse Practitioner Family; Visit Provider Physician Assistant
DX: S82.62XD Displaced fracture of lateral malleolus of left fibula, subsequent encounter for closed fracture with routine healing (principal); X58.XXXD Exposure to other specified factors, subsequent encounter; W19.XXXD Unspecified fall, subsequent encounter; Z98.890 Other specified postprocedural states
CPT/HCPCS: 73610

== ENCOUNTER 2022-08-28 02:20 | Outpatient (CLI) | payer BC, SELFPAY ==
[2022-08-29 19:54] LABS: Progesterone 12.5 ng/mL (See Table)
== END 2022-08-28 02:21 | disposition home or self-care (01) ==
LOC: LBO 02:20
PROVIDERS: Obstetrics & Gynecology Gynecology; PCP Nurse Practitioner Family; Visit Provider Nurse Practitioner Family
DX: Z31.89 Encounter for other procreative management (principal)
CPT/HCPCS: 36415; 84144

== ENCOUNTER 2022-09-12 09:49 | Outpatient (CLI) | payer BC, SELFPAY ==
--- NOTE | 2022-09-12 07:45 | DI.RAD_ITS ---
Exam(s) XR ANKLE LT COMPLETE EXAM: XR ANKLE LT COMPLETE CLINICAL HISTORY: F/U S/P ORIF L ANKLE TECHNIQUE: 2D digital imaging was performed. Three views. COMPARISON: CR XR ANKLE LT COMPLETE from 08/15/2022 FINDINGS: BONES: Fixation plate is again noted along the distal fibula. No change in alignment. There has bee n continued healing at the fracture site. No bony destructive lesion is seen. JOINTS:The ankle mortise is normally aligned. SOFT TISSUE: Soft tissue swelling remains present around the malleoli. IMPRESSION: Healing distal fibular fracture. DATA REPOSITORY: RADIATION DOSE DELIVERED:
== END 2022-09-12 09:50 | disposition home or self-care (01) ==
LOC: DIORS 09:49
PROVIDERS: PCP Nurse Practitioner Family; Referring Provider Nurse Practitioner Family; Visit Provider Physician Assistant
DX: S82.62XD Displaced fracture of lateral malleolus of left fibula, subsequent encounter for closed fracture with routine healing (principal); X58.XXXD Exposure to other specified factors, subsequent encounter
CPT/HCPCS: 73610

== ENCOUNTER 2022-10-10 08:53 | Outpatient (CLI) | payer BC, SELFPAY ==
--- NOTE | 2022-10-10 09:08 | DI.RAD_ITS ---
Exam(s) XR ANKLE LT COMPLETE EXAM: XR ANKLE LT COMPLETE CLINICAL HISTORY: S/P ORIF L ANKLE. TECHNIQUE: 2D digital imaging was performed. COMPARISON: CT CT LOWER EXTREMITY LT WO from 08/05/2022 CR,XR XR ANKLE LT COMPLETE from 08/05/2022 CR XR ANKLE LT COMPLETE from 09/12/2022 FINDINGS: 3 views Lateral fixation plate in the distal fibula and supporting screws appear stable. No evidence of hard kemp loosening. No widening of the ankle mortise. Talar dome appears unremarkable. No obvious dege nerative changes. On the lateral view there is a cortical irregularity the most posterior aspect of the posterior malle olus. This corresponds to a Ree positions avulsion fragment which was evident on the CT scan images of 08/05/2022. This appears to be in satisfactory position at present. Fracture line at this level is still visible. IMPRESSION: Stable appearance. Posterior malleolar finding as above. DATA REPOSITORY: RADIATION DOSE DELIVERED:
== END 2022-10-10 08:54 | disposition home or self-care (01) ==
LOC: DIORS 08:54
PROVIDERS: PCP Nurse Practitioner Family; Referring Provider Nurse Practitioner Family; Visit Provider Student in an Organized Health Care Education/Training Program
DX: Z98.890 Other specified postprocedural states (principal); S82.62XD Displaced fracture of lateral malleolus of left fibula, subsequent encounter for closed fracture with routine healing; X58.XXXD Exposure to other specified factors, subsequent encounter
CPT/HCPCS: 73610

== ENCOUNTER → 2022-11-14 01:05 | Outpatient (CLI) | payer BC, SELFPAY ==
--- NOTE | 2022-11-14 10:21 | DI.RAD_ITS ---
Exam(s) RF HYSTEROSALPINGOGRAM EXAM: RF HYSTEROSALPINGOGRAM CLINICAL HISTORY: evaluate tubal patency,INFERTILITY,Z31.9 TECHNIQUE: 2D and realtime digital imaging was performed. CONTRAST MATERIAL: Water soluble contrast was administered. COMPARISON: No exams were available for comparison FINDINGS: Fluoroscopically-guided hysterosalpingogram. The cervical opening was cannulated by Dr. Mayo. Th en under fluoroscopic guidance, water-soluble contrast was injected in a retrograde fashion. The uterus fills normally, with no evidence of contour abnormality, filling defect, septum, stricture , mass, or bicornuate configuration. The bilateral uterine tubes are normal and patent with normal ra pid spillage of contrast into the peritoneum. IMPRESSION: Normal hysterosalpingogram. RADIATION DOSE DELIVERED: kulwant Villatoro=0.66 mGy
== END ==
PROVIDERS: PCP Nurse Practitioner Family; Visit Provider Obstetrics & Gynecology Gynecology
DX: Z31.9 Encounter for procreative management, unspecified (principal)
CPT/HCPCS: 74740

== ENCOUNTER 2023-01-06 03:15 | Outpatient (CLI) | payer BC, SELFPAY ==
[2023-01-07 18:39] LABS: Estradiol 42 pg/mL (See Note)
[2023-01-07 18:47] LABS: FSH 9.5 mIU/mL (See Note)
[2023-01-07 18:51] LABS: LH 7.3 mIU/mL (See Note)
== END 2023-01-06 03:16 | disposition home or self-care (01) ==
LOC: LBO 03:15
PROVIDERS: Obstetrics & Gynecology Gynecology; PCP Nurse Practitioner Family; Visit Provider Nurse Practitioner Family
DX: Z31.9 Encounter for procreative management, unspecified (principal)
CPT/HCPCS: 36415; 82670; 83001; 83002

== ENCOUNTER 2023-02-04 03:16 | Outpatient (CLI) | payer BC, SELFPAY ==
[2023-02-04 17:44] LABS: HCG Quant, Pregnancy < 1 mIU/mL (1-3); TSH 2.04 uIU/mL (0.36-3.74)
[2023-02-05 17:39] LABS: Thyroperoxidase Antibody 627 U/mL (<=60)
[2023-02-06 09:28] LABS: Hepatitis B Surface Ag Negative (Negative)
[2023-02-06 10:00] LABS: Hepatitis C Ab w Rflx HCV PCR Negative (Negative)
[2023-02-06 10:11] LABS: Rubella IgG Ab (UVM) Positive (See Note); Varicella IgG Antibody Positive (See Note)
[2023-02-06 10:15] LABS: Syphilis Serology (RPR) Negative (Negative)
[2023-02-06 10:32] LABS: HIV-1/2 Ag & Ab Screen Negative (Negative)
[2023-02-06 10:50] LABS: Hep B Core Antibody Positive (Negative)
[2023-02-06 13:33] LABS: Chlamydia Result Negative (Negative); GC Result Negative (Negative)
== END 2023-02-04 03:17 | disposition home or self-care (01) ==
PROVIDERS: PCP Nurse Practitioner Family; Visit Provider Obstetrics & Gynecology
DX: N97.9 Female infertility, unspecified (principal); Z11.3 Encounter for screening for infections with a predominantly sexual mode of transmission; Z36.0 Encounter for antenatal screening for chromosomal anomalies
CPT/HCPCS: 36415; 86704; 86787; 86803; 86850; 86900; 86901; 87340; 87389; 87491; 87591; 84144; 84443; 84702; 86376; 86592; 86762

== ENCOUNTER 2023-02-13 03:27 | Outpatient (CLI) | payer BC, SELFPAY ==
[2023-02-14 09:53] LABS: HBs Antibody, Qual Positive (See Note); HBs Antibody, Quant >1000.0 mIU/mL (See Note); Hepatitis B Core Antibody Positive (Negative); Hepatitis B surface Ag Negative (Negative); Hepatitis C Ab w Rflx HCV PCR Negative (Negative)
== END 2023-02-13 03:28 | disposition home or self-care (01) ==
LOC: LBO 03:28
PROVIDERS: PCP Nurse Practitioner Family; Visit Provider Nurse Practitioner Family
DX: R76.8 Other specified abnormal immunological findings in serum (principal)
CPT/HCPCS: 36415; 86704; 86706; 86803; 87340

== ENCOUNTER 2023-03-04 01:49 | Outpatient (CLI) | payer BC, SELFPAY ==
[2023-03-04 22:38] LABS: HCG Quant, Pregnancy < 1 mIU/mL (1-3)
[2023-03-05 17:51] LABS: Progesterone 2.7 ng/mL (See Table)
== END 2023-03-04 01:50 | disposition home or self-care (01) ==
PROVIDERS: PCP Nurse Practitioner Family; Referring Provider Obstetrics & Gynecology; Visit Provider Obstetrics & Gynecology
DX: N97.8 Female infertility of other origin (principal)
CPT/HCPCS: 36415; 84144; 84702

== ENCOUNTER 2023-04-01 03:15 | Outpatient (CLI) | payer BC, SELFPAY ==
[2023-04-01 07:49] LABS: HCG Quant, Pregnancy < 1 mIU/mL (1-3)
[2023-04-01 19:06] LABS: Progesterone 2.4 ng/mL (See Table)
== END 2023-04-01 03:16 | disposition home or self-care (01) ==
LOC: LBO 03:15
PROVIDERS: PCP Nurse Practitioner Family; Visit Provider Obstetrics & Gynecology
DX: N97.9 Female infertility, unspecified (principal)
CPT/HCPCS: 36415; 84144; 84702

== ENCOUNTER 2023-04-03 08:57 | Outpatient (CLI) | payer BC, SELFPAY ==
[2023-04-09 13:33] LABS: Progesterone 0.9 ng/mL
== END 2023-04-03 08:58 | disposition home or self-care (01) ==
LOC: LBO 08:57
PROVIDERS: PCP Nurse Practitioner Family; Visit Provider Obstetrics & Gynecology
DX: N97.9 Female infertility, unspecified (principal)
CPT/HCPCS: 36415; 84144

== ENCOUNTER 2023-04-28 08:45 | Outpatient (CLI) | payer BC, SELFPAY ==
[2023-04-28 08:04] LABS: HCG Quant, Pregnancy 1 mIU/mL (1-3)
[2023-04-28 17:29] LABS: Progesterone 3.3 ng/mL (See Table)
== END 2023-04-28 08:46 | disposition home or self-care (01) ==
PROVIDERS: PCP Nurse Practitioner Family; Visit Provider Obstetrics & Gynecology
DX: Z32.02 Encounter for pregnancy test, result negative (principal); N97.9 Female infertility, unspecified
CPT/HCPCS: 36415; 84144; 84702

== ENCOUNTER 2023-05-01 08:56 | Outpatient (CLI) | payer BC, SELFPAY ==
[2023-05-01 18:01] LABS: Progesterone 0.9 ng/mL (See Table)
== END 2023-05-01 08:57 | disposition home or self-care (01) ==
LOC: LBO 08:57
PROVIDERS: PCP Nurse Practitioner Family; Visit Provider Obstetrics & Gynecology
DX: N97.9 Female infertility, unspecified (principal)
CPT/HCPCS: 36415; 84144

== ENCOUNTER 2023-07-30 05:05 | Outpatient (CLI) | payer BC, SELFPAY ==
[2023-07-30 15:57] LABS: ESR 4 mm/hr (0-20)
[2023-07-30 17:00] LABS: C-Reactive Protein < 0.50 mg/dL (<or=0.5)
[2023-08-03 09:09] LABS: Cyclic Citrullinated Peptide <2.5 U/mL (<5.0)
[2023-08-03 15:56] LABS: ANA Interpretation Negative (Negative)
== END 2023-07-30 05:06 | disposition home or self-care (01) ==
PROVIDERS: PCP Nurse Practitioner Family; Visit Provider Nurse Practitioner Family
DX: L63.9 Alopecia areata, unspecified; K21.9 Gastro-esophageal reflux disease without esophagitis; Z00.00 Encounter for general adult medical examination without abnormal findings
CPT/HCPCS: 36415; 85652; 86200; 86038; 86140

== ENCOUNTER 2023-11-12 14:46 | Outpatient (REF) | payer BC, SELFPAY ==
--- NOTE | 2023-11-12 14:30 | PAPFT_PTH ---
PATIENT: Pascual Morales LOC: [facility] U#:[id number] AGE/SX: 43/F ROOM: RE11/12/[address]: Yarelis Mayo : 1980 BED: DIS: 11/12/2023 SPEC #: [id number] RECD: 11/12/23 17:28 STATUS: CORINA REGuillermo #: [id number] ELONARD: 11/12/23 14:[address]: Yarelis Mayo DEPT: [facility] Cytology RECD BY: Junie Clark ENTERED: 11/12/23 17:28 SP TYPE: PAPFT OTHR DR: Blanco Pryor DNP Tissues: 1 - CX/ENDOCX FOR PAP SMEARS Procedures: PAP THIN PREP/[facility] Screening HPV DNA PROBE Comments: [id number] (HPV 16 & 18/45)
== END 2023-11-12 14:47 | disposition home or self-care (01) ==
LOC: LBN 14:46
PROVIDERS: PCP Nurse Practitioner Family; Visit Provider Obstetrics & Gynecology Gynecology
DX: Z01.419 Encounter for gynecological examination (general) (routine) without abnormal findings (principal)
CPT/HCPCS: 88142; 87624

== ENCOUNTER 2023-12-10 01:12 | Outpatient (CLI) | payer BC, SELFPAY ==
--- NOTE | 2023-12-10 15:00 | DI.MAMMO_ITS ---
Exam(s) MAMMO SCREENING EXAM: MAMMO SCREENING CLINICAL HISTORY: screening TECHNIQUE: Mammograms were interpreted according to the usual protocol including computer analysis w Postling CAD system, tomosynthesis and C-view imaging. COMPARISON: 2020 and 2021 FINDINGS: The breasts are composed of heterogeneously dense fibroglandular densities, Breast Density category C . No suspicious masses or suspicious microcalcifications are seen. No skin thickening or abnormal axillary lymph nodes are seen. There has been no significant change from prior exams. IMPRESSION: BI-RADS Category 1, Negative mammogram. Yearly screening mammography is recommended. Breast Density Category C, heterogeneously Dense. The mammogram demonstrates the patient's breast tissue is dense. Dense breast tissue is very common a nd is not abnormal but dense breast tissue can make it harder to find cancer on a mammogram. Also, de nse breast tissue may increase breast cancer risk. This information about the result of the mammogram report was provided to the patient to raise their awareness. Use this report when you speak with the patient about their risks for breast cancer, which includes their family history. At that time, you may recommend additional screening tests (Ultrasound or MRI) as they might be useful based on their r isk. A negative radiographic report should not delay biopsy if a dominant or clinically suspicious mass is present. Up to ten percent of cancers are not identified on mammography. A negative report may reinforce clinical impression. Adenosis and dense breasts may obscure an underlying neoplasm. False positive reports average 6 to 10%.
== END 2023-12-10 01:32 ==
LOC: DI 01:12
PROVIDERS: PCP Nurse Practitioner Family; Visit Provider Obstetrics & Gynecology Gynecology
DX: Z12.31 Encounter for screening mammogram for malignant neoplasm of breast (principal)
CPT/HCPCS: 77063; 77067

== ENCOUNTER 2024-07-22 14:10 | Outpatient (REF) | payer BC, SELFPAY ==
[2024-07-22 14:11] LABS: ALT 22 U/L (14-59); AST 15 U/L (15-37); Albumin 4.2 g/dL (3.4-5.0); Alkaline Phosphatase 72 U/L (46-116); Anion Gap 8.3 mmol/L (3-11); BUN 11 mg/dL (7-18); Bilirubin, Total 0.7 mg/dL (0.2-1.0); CO2 25.7 mmol/L (21.0-32.0); CREATININE 0.7 mg/dL (0.55-1.02); Calcium 9.4 mg/dL (8.5-10.1); Calculated LDL 104 mg/dL (<100); Chloride 103 mmol/L (98-107); Cholesterol 162 mg/dL (<200); Glucose 98 mg/dL (74-106); HDL Cholesterol 49 mg/dL (>or=50); Potassium 4.2 mmol/L (3.5-5.1); Sodium 137 mmol/L (136-145); Total Protein 7.1 g/dL (6.4-8.2); Triglyceride 45 mg/dL (<150)
== END 2024-07-22 14:11 | disposition home or self-care (01) ==
LOC: LBN 14:10
PROVIDERS: PCP Nurse Practitioner Family; Visit Provider Nurse Practitioner Family
DX: Z13.220 Encounter for screening for lipoid disorders (principal)
CPT/HCPCS: 80053; 80061